=== PATIENT | male | born 1940 | race Caucasian/White ===

== ENCOUNTER 2017-10-13 13:14 | Emergency (ER) | payer MEDICARE, OTHER ==
[~2017-10-13 13:14] MED LIST: Iopamidol 370 76% 125 ML VIAL FS ONE
[2017-10-13 14:07] LABS: #Basophils 0.1 thou/uL (0.0-0.2); #Eosinphils 0.1 thou/uL (0.0-0.7); #Lymphocytes 1.8 thou/uL (1.20-3.40); #Monocytes 0.7 thou/uL (0.11-0.59); #Neutrophils 4.3 thou/uL (1.40-6.50); %Basophils 1.2 % (0.0-1.0); %Eosinophils 1.4 % (0.0-10.0); %Neutrophils 61.5 % (42.0-75.0); Hemoglobin 12.1 g/dL (14.0-18.0); Mean Corpuscular HGB CONC 31.6 g/dL (32.0-36.0); Mean Corpuscular Hemoglobin 26.3 pg (27.0-31.0); Mean Corpuscular Volume 83.3 fl (80.0-94.0); Mean Platelet Volume 7.7 fL (7.4-10.4); Platelet Count 200 thou/uL (130-400); RBC Distribution Width 14.7 % (11.5-14.5); Red Blood Cell (RBC) Count 4.61 mill/uL (4.70-6.10)
[2017-10-13 14:27] LABS: CKMB 1.9 ng/mL (0-6.6); Troponin I 0.019 ng/mL (< 0.028)
[2017-10-13 15:12] LABS: Anion Gap 14 mmol/L (10-20); BUN (Urea Nitrogen) 23 mg/dL (8.4-25.7); Calc. Creatinine Clearance 0 mL/min (70-130); Calcium 9.8 mg/dL (7.8-10.44); Carbon Dioxide 24 mmol/L (23-31); Chloride 106 mmol/L (98-107); Estimated GFR-MDRD 80; Glucose 101 mg/dL (83-110); Potassium 4.2 mmol/L (3.5-5.1); Sodium 140 mmol/L (136-145)
--- NOTE | 2017-10-13 15:51 | CT ---
CT PULMONARY ANGIOGRAM WITH IV CONTRAST AND 3D POSTPROCESSING: Date: 10/13/17 HISTORY: Dyspnea on exertion. Elevated D-Dimer. Coronary artery disease, deep venous thrombosis, and hypertens ion. FINDINGS: No filling defects are seen in the contrast opacified pulmonary arterial vasculature to suggest pulmo nary embolism. No thoracic aortic aneurysm or dissection is seen. No pleural or pericardial effusions are identified. No pneumothoraces, lobar consolidation, or lung masses are noted. There are mild dep endent changes in the lung bases. There are degenerative changes in the spine. Low density lesions in the liver are likely cysts. IMPRESSION: No CT evidence of pulmonary embolism. POS: OFF
== END 2017-10-13 16:05 | disposition home or self-care (01) ==
LOC: MADERS 13:14
DX: J20.9 Acute bronchitis, unspecified (principal); I10 Essential (primary) hypertension; M19.90 Unspecified osteoarthritis, unspecified site; F43.10 Post-traumatic stress disorder, unspecified; E66.9 Obesity, unspecified; Z79.01 Long term (current) use of anticoagulants; Z86.718 Personal history of other venous thrombosis and embolism; Z79.899 Other long term (current) drug therapy
CPT/HCPCS: 36415; 71275; 80048; 82550; 82553; 84484; 85025; 85379; 93005

== ENCOUNTER 2017-11-18 15:36 | Emergency (ER) | payer MEDICARE, OTHER | END 2017-11-18 16:30 | disposition home or self-care (01) | LOC: MADERS 15:36 | DX: S00.412A Abrasion of left ear, initial encounter (principal); M19.90 Unspecified osteoarthritis, unspecified site; I10 Essential (primary) hypertension; Z87.891 Personal history of nicotine dependence; Z79.01 Long term (current) use of anticoagulants; Z79.899 Other long term (current) drug therapy; Z86.718 Personal history of other venous thrombosis and embolism; E66.9 Obesity, unspecified; F43.10 Post-traumatic stress disorder, unspecified; X58.XXXA Exposure to other specified factors, initial encounter | CPT/HCPCS: 99282 ==

== ENCOUNTER 2018-03-15 16:25 | Emergency (ER) | payer MEDICARE ==
[2018-03-15] MEDS ORDERED: Ondansetron ODT 4 MG TAB ONE (17:43)
[2018-03-15] MEDS ORDERED: Dexamethasone 10 MG/ML VIAL ONE (17:43)
== END 2018-03-15 18:02 | disposition home or self-care (01) ==
LOC: MADERS 16:25
DX: S70.01XA Contusion of right hip, initial encounter (principal); S40.011A Contusion of right shoulder, initial encounter; M19.90 Unspecified osteoarthritis, unspecified site; F43.10 Post-traumatic stress disorder, unspecified; E66.9 Obesity, unspecified; Z86.718 Personal history of other venous thrombosis and embolism; Z87.891 Personal history of nicotine dependence; W19.XXXA Unspecified fall, initial encounter
CPT/HCPCS: 96372; J1100; Q0162

== ENCOUNTER 2018-12-24 11:39 | Emergency (ER) | payer MEDICARE ==
[2018-12-24] MEDS ORDERED: Aspirin Chewable 81 MG TAB ONE (12:39)
--- NOTE | 2018-12-24 12:41 | RAD ---
PA AND LATERAL VIEWS CHEST: Date: 12/24/18 HISTORY: Chest pain. FINDINGS: Comparison made with exam of 11/08/18. There are changes of median sternotomy. The heart size is normal. The aorta is tortuous. The lungs ar e well expanded without lobar consolidation, pneumothoraces, sushil pulmonary edema, or pleural effusi ons. There are degenerative changes in the spine. IMPRESSION: No radiographic evidence of acute cardiopulmonary process. POS: TPC
[2018-12-24 12:47] LABS: #Lymphocytes 1.3 thou/uL (1.20-3.40); #Monocytes 0.5 thou/uL (0.11-0.59); #Neutrophils 3.9 thou/uL (1.40-6.50); %Basophils 0.8 % (0.0-1.0); %Eosinophils 0.8 % (0.0-10.0); %Monocytes 8.6 % (0.0-10.0); %Neutrophils 67.8 % (42.0-75.0); Hemoglobin 11.3 g/dL (14.0-18.0); Mean Corpuscular HGB CONC 30.6 g/dL (32.0-36.0); Mean Corpuscular Hemoglobin 25.5 pg (27.0-31.0); Mean Corpuscular Volume 83.6 fL (78.0-98.0); Mean Platelet Volume 7.2 fL (7.4-10.4); Platelet Count 224 thou/uL (130-400); RBC Distribution Width 14.6 % (11.5-14.5); Red Blood Cell (RBC) Count 4.43 mill/uL (4.70-6.10); White Blood Cell (WBC) Count 5.8 thou/uL (4.8-10.8)
[2018-12-24 13:00] LABS: ALT (SGPT) 13 U/L (8-55); AST (SGOT) 20 U/L (5-34); Albumin 4.2 g/dL (3.4-4.8); Alkaline Phosphatase 83 U/L (40-150); Anion Gap 13 mmol/L (10-20); BUN (Urea Nitrogen) 18 mg/dL (8.4-25.7); Bilirubin, Total 0.6 mg/dL (0.2-1.2); Calc. Creatinine Clearance 0 mL/min (70-130); Calcium 9.7 mg/dL (7.8-10.44); Carbon Dioxide 25 mmol/L (23-31); Chloride 104 mmol/L (98-107); Estimated GFR-MDRD 72; Globulin 3.5 g/dL (2.4-3.5); Glucose 105 mg/dL (83-110); Potassium 4.2 mmol/L (3.5-5.1); Protein, Total 7.7 g/dL (5.8-8.1); Sodium 138 mmol/L (136-145)
== END 2018-12-24 13:56 | disposition home or self-care (01) ==
LOC: MADERS 11:39
DX: R07.9 Chest pain, unspecified (principal); E66.9 Obesity, unspecified; I10 Essential (primary) hypertension; M19.90 Unspecified osteoarthritis, unspecified site; Z86.718 Personal history of other venous thrombosis and embolism; Z79.01 Long term (current) use of anticoagulants; Z79.899 Other long term (current) drug therapy; Z79.82 Long term (current) use of aspirin; Z87.891 Personal history of nicotine dependence
CPT/HCPCS: 36415; 71046; 80053; 83880; 84484; 85025; 93005; 94760